=== PATIENT | female | born 1980 | race Caucasian/White ===

== ENCOUNTER 2018-10-23 16:17 | Emergency (ER) | payer OTHER ==
[~2018-10-23] VITALS: Ht 154.9 cm; Wt 79.5 kg
[~2018-10-23 16:17] MED LIST: AMLODIPINE10 MG PO; B12 LIQUID PO; BACTRIM DS1 TAB PO; BUT/APAP/CAF PO; CIPROFLOXACN500 MG PO; CLOBETASOL0.05 % EX; CYCLOBENZAPR10 MG PO; DOXYCYCL HYC100 MG PO; FIORICET PO; HYDROCHLORO25 MG/TAB PO; HYDROCHLOROTHIA50 MG PO; K-DUR/KLOR-CON10 MEQ PO; KETOROLAC60 MG/2 ML IJ; LEVOTHYROXIN50 MC1 PO; LEVOTHYROXIN75 MCG PO; LORTAB 7.5 PO; MELOXICAM15 MG PO; METRONIDAZOL500 MG PO; MICRO-K10 MEQ PO; MOBIC7.5 MG PO; MUCINEX600 MG PO; NASONEX50 MCG/AC; OMNICEF300 MG PO; POTASSI19 XX; PRENATA3 OR; PROVENTIL HFA IN; SERTRALINE100 MG PO; TAM75CAP PO; ZESTRIL10 MG PO; ZOFRAN ODT4 MG PO; ZOFRAN ODT8 MG PO; ZOLOFT100 MG PO; ZOLOFT50 MG PO; ZPAK PO
[2018-10-23 17:01] LABS: IMMATURE GRANULOCYTES 0.4 % (0.0-5.0); MEAN CELL VOLUME 93.3 fL CALC (80.0-100.0); MEAN CORPUSCULAR HGB 30.6 pG CALC (26.0-32.0); MEAN CORPUSCULAR HGB CONC 32.8 g/L CALC (32.0-36.0); NEUT# 6.49 thou/uL (2.00-7.15); RED BLOOD COUNT 3.56 mill/uL (4.20-5.60); RED CELL DISTRI WIDTH 12.8 % (11.5-15.5)
[2018-10-23 17:02] LABS: HEMATOCRIT 33.2 % (37.0-47.0); HEMOGLOBIN 10.9 g/dl (12.0-16.0)
[2018-10-23 17:42] LABS: ALBUMIN 4.9 g/dL (3.2-5.0); ALKALINE PHOSPHATASE 55 u/l (38-126); ANION GAP 17 (6-22 (CALC)); BILIRUBIN, TOTAL 0.7 mg/dL (0.0-1.4); BUN 11 mg/dL (7-17); BUN/CREATININE RATIO 16 (12-20 (CALC)); CARBON DIOXIDE 20 mmol/l (22-30); CHLORIDE 104 mmol/l (95-108); CREATININE 0.7 mg/dL (0.5-1.0); GFR > 60 ML/MIN (>=60 (CALC)); GFR FOR AFR.AMER. > 60 ML/MIN (>=60 (CALC)); POTASSIUM 4.1 mmol/l (3.5-5.1); SGOT/AST 27 u/l (14-36); SODIUM 138 mmol/l (137-146); TOTAL PROTEIN 7.4 g/dL (6.3-8.2)
[2018-10-23 17:57] LABS: BETA-HCG, QUANT(RESULT NUMBER) 696 mIU/mL
[2018-10-23 18:00] LABS: URINE BILIRUBIN - DIPSTICK NEGATIVE (NEGATIVE); URINE BLOOD DIPSTICK SMALL (NEGATIVE); URINE COLOR YELLOW; URINE GLUCOSE - DIPSTICK NEGATIVE (NEGATIVE); URINE KETONE NEGATIVE (NEGATIVE); URINE LEUK ESTERASE NEGATIVE (NEGATIVE); URINE NITRITE - DIPSTICK NEGATIVE (Negative); URINE PROTEIN - DIPSTICK NEGATIVE (NEG-TRACE); URINE SPECIFIC GRAVITY <=1.005; URINE UROBILINOGEN - DIPSTICK 0.2 E.U./dL (0.2)
[2018-10-23 18:03] LABS: URINE SQUAMOUS EPITHELIAL CELL FEW EPI/hpf (0-FEW)
[2018-10-23 21:11] VITALS: BP 128/71
== END 2018-10-23 21:10 | disposition short-term general hospital (02) | DRG 833 ==
LOC: ED 16:17
PROVIDERS: Emergency Medicine
DX: O26.891 Other specified pregnancy related conditions, first trimester (principal); O99.011 Anemia complicating pregnancy, first trimester; D64.9 Anemia, unspecified; O10.911 Unspecified pre-existing hypertension complicating pregnancy, first trimester; Z3A.00 Weeks of gestation of pregnancy not specified